=== PATIENT | male | born 1985 | race Caucasian/White ===

== ENCOUNTER 2023-12-12 23:08 | Emergency (ER) | payer BC, SELFPAY ==
[2023-12-12 23:15] VITALS: BP 173/98
[2023-12-13 00:25] VITALS: BP 133/90
[2023-12-13 00:35] LABS: % Basophils 0.3 % (0-2); % Eosinophils 0.1 % (0-6); % Immature Granulocytes 0.8 % (0-0.5); % Lymphocytes 6.2 % (20.5-51.1); % Monocytes 9.1 % (1.7-9.3); % Neutrophils 83.5 % (42.2-75.2); Absolute Immature Granulocytes 0.1 10^3/uL (0-0.05); Absolute Lymphocytes 0.6 10^3/uL (1.2-3.4); Absolute Monocytes 0.8 10^3/uL (0.1-0.6); Absolute Neutrophils 7.5 10^3/uL (1.4-6.5); Hematocrit 37.5 % (39.0-52.0); Hemoglobin 13.3 g/dL (13.0-18.0); Mean Corp Hgb Conc. 35.5 g/dL (33.0-37.0); Mean Corpuscular Volume 90.4 fL (80.0-94.0); Mean Platelet Volume 10.5 fL (7.4-10.4); Nucleated Red Blood Cells % 0 % (-); Platelet Count 221 10^3/uL (130-400); Red Blood Cell Count 4.15 10^6/uL (4.70-6.10); Red Cell Dist. Width 11.9 % (11.5-14.5)
[2023-12-13 00:48] LABS: Lactic Acid 0.8 mmol/L (0.7-2.0)
[2023-12-13 00:56] LABS: ALT (SGPT) 18 U/L (0-50); AST (SGOT) 24 U/L (17-59); Alkaline Phosphatase 78 U/L (38-126); Blood Urea Nitrogen 13 mg/dl (9-20); Calcium 9.1 mg/dl (8.4-10.2); Carbon Dioxide 23 mmol/L (22-30); Chloride 104 mmol/L (98-107); Glucose 105 mg/dl (70-99); Sodium 137 mmol/L (135-145); Total Bilirubin 0.6 mg/dl (0.2-1.3); Total Protein 6.6 g/dl (6.3-8.2); eGFR > 60.00
--- NOTE | 2023-12-13 01:47 | ED.GENMED ---
History of Present Illness
<JOB Mathews - Last Filed: 12/13/23 06:00>
General
Chief Complaint: Fever
Source: patient
Exam Limitations: none
Time Seen by Provider: 12/13/23 01:44
Nursing documentation reviewed up to this point in time: agreed with
History of Present Illness
History of Present Illness:
37 year old male presents for evaluation of fever. Pt reports that he awoke in the store [place] on 12/11 with fever and chills, tmax 104F per pt. Pt endorses associated cough since 12/09, with elwhy-nu-mmlpae sputum production reported. Pt also
endorses 3 bouts of watery diarrhea over the last 24 hours. Of note, pt notes that he was started on Augmentin 2 days ago by his PCP for suspected bacterial sinusitis. He denies blood in his stool, N/V, anorexia, recent travel, and sick contacts. Pt
took Tylenol approximately 3 hours ago, most recent temperature 99.9F. Pt has received this year's influenza vaccination, as well as last year's COVID-19 vaccination.
Past History
<JOB Mathews - Last Filed: 12/13/23 06:00>
Past History
ED Past Medical History: Hypothyroidism
ED Past Surgical History: None
Social History
Tobacco: Vaping
Alcohol: Occasional
Drug: None
Personal:
Living: with family
Employment: Employed
Family History
Family History: Negative Early CAD
Review of Systems
<JOB Mathews - Last Filed: 12/13/23 06:00>
Review of Systems
Allergies reviewed?: Yes
Constitutional: Reports fever and chills
EENT: Reports no symptoms
Respiratory: Reports cough
Cardiac: Reports no symptoms
ABD/GI: Reports diarrhea
: Reports no symptoms
Musculoskeletal: Reports no symptoms
Skin: Reports no symptoms
Neurological: Reports no symptoms
Endocrine: Reports no symptoms
Hematologic/Lymphatic: Reports no symptoms
Psychiatric: Reports no symptoms
Phy Exam
<JOB Mathews - Last Filed: 12/13/23 06:00>
General Physical Exam
General Presentation: well appearing
General age: appears stated age
General Skin: warm
General Habitus: normal
General Mental: alert
General Hydration: appears well hydrated
Cardiovascular Exam
Cardiovascular Exam: regular rate/rhythm and no edema
Course
<JOB Mathews - Last Filed: 12/13/23 06:00>
Orders/Labs/Results
Orders:
Orders
12/13/23 00:15
CR Chest - 2 Views Urgent
Comment:
Reason For Exam: suspected infection
12/13/23 00:18
Acetaminophen [Tylenol] 1,000 mg PO NOW STA
12/13/23 00:25
Complete Blood Count/With Diff Urgent
Comprehensive Metabolic Panel Urgent
Lactic Acid Q4H
Comment: ON ICE, CANCEL 2ND ORDER IF FIRST LACTIC ACID LEVEL <2
Blood Culture Q30M
KAITLYNN Source: Blood/Venous
Specimen Description:
Comment: FROM 2 SEPARATE SITES
12/13/23 00:45
Blood Culture Q30M
KAITLYNN Source: Blood/Venous
Specimen Description:
Comment: FROM 2 SEPARATE SITES
12/13/23 03:15
COVID-19 Antigen Urgent
Source: Nasal Swab
12/13/23 04:06
Ibuprofen [Motrin] 800 mg .ROUTE .STK-MED ONE
12/13/23 04:11
Ibuprofen [Motrin] 800 mg PO NOW STA
12/13/23 04:35
Influenza A+B Rapid Molecular Urgent
KAITLYNN Source: Nasal Swab
Specimen Description:
Date Specimen was Collected: 12/13/23
Time Specimen was Collected: 03:58
Rapid Strep Group A Urgent
KAITLYNN Source: Throat/Pharynx
Specimen Description:
Date Specimen was Collected: 12/13/23
Time Specimen was Collected: 03:58
Abnormal Lab Results
12/13/23
00:25
RBC 4.15 L 10^6/uL
(4.70-6.10)
Hct 37.5 L %
(39.0-52.0)
MCH 32.0 H pg
(27.0-31.0)
MPV 10.5 H fL
(7.4-10.4)
Abs Immat Gran (auto) 0.1 H 10^3/uL
(0-0.05)
Absolute Neuts (auto) 7.5 H 10^3/uL
(1.4-6.5)
Absolute Lymphs (auto) 0.6 L 10^3/uL
(1.2-3.4)
Absolute Monos (auto) 0.8 H 10^3/uL
(0.1-0.6)
Immature Gran % 0.8 H %
(0-0.5)
Neutrophils % 83.5 H %
(42.2-75.2)
Lymphocytes % 6.2 L %
(20.5-51.1)
Glucose 105 H mg/dl
(70-99)
12/13/23 00:25
12/13/23 00:25
Vital Signs
Initial and Last Documented VS:
Initial Vital Signs
Temp Pulse Resp BP Pulse Ox
103.2 F H 112 18 173/98 96
12/12/23 23:15 12/12/23 23:15 12/12/23 23:15 12/12/23 23:15 12/12/23 23:15
Last Documented Vital Signs
Temp Pulse Resp BP Pulse Ox
102.9 F H 91 16 133/90 97
12/13/23 04:08 12/13/23 03:16 12/13/23 03:16 12/13/23 00:25 12/13/23 03:16
<Samuel Santos, DO - Last Filed: 12/13/23 05:56>
Orders/Labs/Results
Orders:
Orders
12/13/23 00:15
CR Chest - 2 Views Urgent
Comment:
Reason For Exam: suspected infection
12/13/23 00:18
Acetaminophen [Tylenol] 1,000 mg PO NOW STA
12/13/23 00:25
Complete Blood Count/With Diff Urgent
Comprehensive Metabolic Panel Urgent
Lactic Acid Q4H
Comment: ON ICE, CANCEL 2ND ORDER IF FIRST LACTIC ACID LEVEL <2
Blood Culture Q30M
KAITLYNN Source: Blood/Venous
Specimen Description:
Comment: FROM 2 SEPARATE SITES
12/13/23 00:45
Blood Culture Q30M
KAITLYNN Source: Blood/Venous
Specimen Description:
Comment: FROM 2 SEPARATE SITES
12/13/23 03:15
COVID-19 Antigen Urgent
Source: Nasal Swab
12/13/23 04:06
Ibuprofen [Motrin] 800 mg .ROUTE .STK-MED ONE
12/13/23 04:11
Ibuprofen [Motrin] 800 mg PO NOW STA
12/13/23 04:35
Influenza A+B Rapid Molecular Urgent
KAITLYNN Source: Nasal Swab
Specimen Description:
Date Specimen was Collected: 12/13/23
Time Specimen was Collected: 03:58
Rapid Strep Group A Urgent
KAITLYNN Source: Throat/Pharynx
Specimen Description:
Date Specimen was Collected: 12/13/23
Time Specimen was Collected: 03:58
Abnormal Lab Results
12/13/23
00:25
RBC 4.15 L 10^6/uL
(4.70-6.10)
Hct 37.5 L %
(39.0-52.0)
MCH 32.0 H pg
(27.0-31.0)
MPV 10.5 H fL
(7.4-10.4)
Abs Immat Gran (auto) 0.1 H 10^3/uL
(0-0.05)
Absolute Neuts (auto) 7.5 H 10^3/uL
(1.4-6.5)
Absolute Lymphs (auto) 0.6 L 10^3/uL
(1.2-3.4)
Absolute Monos (auto) 0.8 H 10^3/uL
(0.1-0.6)
Immature Gran % 0.8 H %
(0-0.5)
Neutrophils % 83.5 H %
(42.2-75.2)
Lymphocytes % 6.2 L %
(20.5-51.1)
Glucose 105 H mg/dl
(70-99)
12/13/23 00:25
12/13/23 00:25
Vital Signs
Initial and Last Documented VS:
Initial Vital Signs
Temp Pulse Resp BP Pulse Ox
103.2 F H 112 18 173/98 96
12/12/23 23:15 12/12/23 23:15 12/12/23 23:15 12/12/23 23:15 12/12/23 23:15
Last Documented Vital Signs
Temp Pulse Resp BP Pulse Ox
102.9 F H 91 16 133/90 97
12/13/23 04:08 12/13/23 03:16 12/13/23 03:16 12/13/23 00:25 12/13/23 03:16
<JOB Mathews - Last Filed: 12/13/23 06:00>
MDM/Problems Addressed
Differential Diagnosis Includes:
PNA, unspecified gastritis, COVID-19
MDM/Problems Addressed:
COVID-19 Antigen Nasal swab
CR Chest
Pt given Acetaminophen [Tylenol] 1,000 mg PO
Complete Blood Count/With Diff
Comprehensive Metabolic Panel
Lactic Acid
Blood Culture Q30M
<JOB Mathews - Last Filed: 12/13/23 06:00>
*Critical Care Note
Total Time (30-74mins, 75-104mins- exclusive of procedures): Not Applicable
<Samuel Santos DO - Last Filed: 12/13/23 05:56>
Update Note
Update Note:
[place] 37-year-old male presents with fever. Patient has been taking Tylenol and Motrin. He has been taking Augmentin as prescribed by his primary care provider. He typically gets 1 sinus infection per year and after seeing his primary care
provider provider on Saturday, it was prescribed prophylactically for him. Patient does report several episodes of nonbloody diarrhea. Patient says that the fever woke him up.
ED Attending Note
<JOB Mathews - Last Filed: 12/13/23 06:00>
-
Portions of this chart may have been created with voice recognition software.� Occasional wrong word or��sound alike� substitutions may have occurred due to the inherent limitations of voice recognition software.
<Samuel Santos DO - Last Filed: 12/13/23 05:56>
ED Attending Note
Patient seen and examined by attending physician: Yes
I performed the substantive portion of visit, reviewed & personally made and approve the management plan that is documented in note by myself or OREN.: Yes
ED Attending Note:
Pleasant 37-year-old male presents with fever. He states he awakened yesterday with fever and chills. Patient states that his Tmax was 104. Has been seen by his primary care provider 2 days ago and started on Augmentin for chronic sinusitis.
Denies any other symptoms or issues. Patient is concerned because she is due to go to a vacation on Saturday and wanted to come in to get checked out. Patient was seen in conjunction with the [employer] student. I have reviewed and agree with the history
and treatment plan presented. On my independent physical exam, patient is awake, alert, and oriented x3 lungs clear bilaterally without wheezes rales or rhonchi. Abdomen is soft nontender nondistended no hepatosplenomegaly.
Chest x-ray is normal. Flu and COVID are negative. Strep is negative.. This is likely viral syndrome. Plan: To discharge home. Discussed return to ER instructions with patient. He verbalized good understanding and will be discharged in
improved condition.
Discharge Plan
Departure
Patient Disposition: Home (Routine Discharge)
Date of Disposition: 12/13/23
Time of Disposition: 05:53
Patient with high blood pressure during this ER visit?: Yes
Condition: Good
Discharge Problem:
Viral syndrome
Instructions: Viral Syndrome (DC), BLOOD PRESSURE
Referrals:
Samuel Santos DO [Emergency Provider] -
Parul Santiago PA-C [Family Provider] -
Stand Alone Forms: Return to Work
Activity Restrictions/Additional Instructions:
It was a pleasure meeting you and taking part in your care. We hope for your continued healing and wellness.
Please read discharge instructions in their entirety. However, they are for general education and may not describe your exact diagnosis at discharge. Information on your ER visit and medical conditions were discussed with you along with appropriate
follow up information...
If indicated, please take your medications as instructed and indicated on discharge paperwork.
Please schedule a follow up appointment as directed. Call to schedule an appointment
Please return to the emergency department with ANY change in, persisting, or worsening of symptoms. If any of your symptoms do not improve, or persist, or become more severe within 6-12 hours, please return to the emergency department for further
care.
Please return to the emergency department if you develop a headache, neck pain/stiffness, fever greater than 100.4F, chest pain, shortness of breath, persistent nausea, vomiting, slurred speech, difficulty walking, numbness/tingling, weakness, signs
of infection or any other symptoms that are worrisome to you.
If you have any questions or concerns please do not hesitate to call the Hospital at or E-mail me directly at [email or web address]
Interventions
Interventions:
*Risk Screen - Suicide Last Done: 12/13/23 01:19
*General Assessment Last Done: 12/13/23 01:19
*Neglect/Abuse Screening Last Done: 12/13/23 01:19
ED- Fall Risk Assessment Last Done: 12/13/23 01:19
*ED COVID-19 Vaccine History Last Done: 12/13/23 01:19
ED- Neurological Assessment Last Done: 12/13/23 01:19
ED-Skin Assessment Last Done: 12/13/23 01:19
Discharge Date and Time
Print Language: ITALIAN
[2023-12-13 03:41] LABS: COVID-19 Antigen Negative (Negative)
[2023-12-13] MEDS: MOTRIN 800 MG PO (04:11)
[2023-12-13 06:05] VITALS: BP 126/84
== END 2023-12-13 06:11 | disposition home or self-care (01) ==
LOC: EMR 23:08
PROVIDERS: Emergency Medicine; EMERGENCY PHYSICIAN Student in an Organized Health Care Education/Training Program; FAMILY PHYSICIAN Physician Assistant Medical
DX: B34.9 Viral infection, unspecified (principal); E03.9 Hypothyroidism, unspecified; F17.290 Nicotine dependence, other tobacco product, uncomplicated; Z11.52 Encounter for screening for COVID-19; Z79.2 Long term (current) use of antibiotics
CPT/HCPCS: 99283; 71046; 80053; 83605; 85025; 87040; 87070; 87502; 87811; 87880

== ENCOUNTER 2023-12-14 08:57 | Emergency (ER) | payer BC, SELFPAY ==
[2023-12-14 08:58] VITALS: BMI 29.0
[2023-12-14 09:00] VITALS: BP 124/88
[2023-12-14] MEDS: NSS 1000 IV (09:48)
[2023-12-14] MEDS: ZOFRAN 4 MG IV (09:48)
[2023-12-14] MEDS: PROTONIX IV 80 MG IV (09:49)
[2023-12-14 09:58] LABS: % Basophils 0.2 % (0-2); % Eosinophils 0.1 % (0-6); % Immature Granulocytes 0.6 % (0-0.5); % Lymphocytes 6.9 % (20.5-51.1); % Monocytes 13.2 % (1.7-9.3); Absolute Immature Granulocytes 0.1 10^3/uL (0-0.05); Absolute Lymphocytes 0.6 10^3/uL (1.2-3.4); Absolute Monocytes 1.1 10^3/uL (0.1-0.6); Absolute Neutrophils 6.3 10^3/uL (1.4-6.5); Hematocrit 34.7 % (39.0-52.0); Hemoglobin 12.2 g/dL (13.0-18.0); Mean Corp Hgb Conc. 35.2 g/dL (33.0-37.0); Mean Corpuscular Hgb 31.9 pg (27.0-31.0); Mean Corpuscular Volume 90.6 fL (80.0-94.0); Mean Platelet Volume 10.2 fL (7.4-10.4); Nucleated Red Blood Cells % 0 % (-); Platelet Count 180 10^3/uL (130-400); Red Blood Cell Count 3.83 10^6/uL (4.70-6.10); Red Cell Dist. Width 12.1 % (11.5-14.5)
[2023-12-14 10:11] LABS: ALT (SGPT) 32 U/L (0-50); AST (SGOT) 40 U/L (17-59); Albumin 3.5 g/dl (3.5-5.0); Alkaline Phosphatase 89 U/L (38-126); Blood Urea Nitrogen 12 mg/dl (9-20); Calcium 8.2 mg/dl (8.4-10.2); Carbon Dioxide 28 mmol/L (22-30); Chloride 103 mmol/L (98-107); Estimated Creatinine Clearance 112 ml/min; Glucose 108 mg/dl (70-99); Lipase 31 U/L (23-300); Sodium 137 mmol/L (135-145); Total Bilirubin 0.8 mg/dl (0.2-1.3); eGFR > 60.00
--- NOTE | 2023-12-14 11:09 | ED.GENMED ---
History of Present Illness
General
Chief Complaint: Abdominal Pain
Source: patient, records and spouse
Exam Limitations: none
Time Seen by Provider: 12/14/23 09:13
Nursing documentation reviewed up to this point in time: agreed with
History of Present Illness
History of Present Illness:
Patient is a 37-year-old male who returns to the emergency department with continued fever and now is developed a dull pain in the mid abdomen. During the night he felt diaphoretic and bloated. Patient belched and felt somewhat better. Patient
feels nauseous since yesterday. Patient has not vomited. Patient has a history of appendectomy and repair of inguinal hernia. Patient noticed his urine was dark. Patient's developed explosive diarrhea with since starting Augmentin for the fever
earlier in the week. Patient was seen here 1 day ago and had workup. Patient continues to have a cough that is nonproductive. Patient denies feeling nasal congestion facial pain. Patient did use his 's inhaler because of feeling congested.
Patient denies any symptoms except that his urine is dark. Patient denies any hematochezia, melena or mucus in the stools. The diarrhea started about the time that he started the Augmentin. Patient still feels bloated
Past History
Past History
ED Past Medical History: Hypothyroidism
ED Past Surgical History: Appendectomy and Other (Inguinal hernia repair)
Social History
Tobacco: Vaping
Alcohol: Occasional
Drug: None
Personal:
Living: with family
Employment: Employed
Family History
Family History: Negative Early CAD
Review of Systems
Review of Systems
All Other Systems: ROS reviewed and negative except as documented in HPI and ROS
Constitutional: Reports fever, fatigue and chills
EENT: Reports no symptoms
Respiratory: Reports cough; Denies trouble breathing
Cardiac: Reports no symptoms
ABD/GI: Reports abdominal pain, nausea, diarrhea and anorexia; Denies vomiting, bloody stools or black stools
: Reports dark urine; Denies dysuria, frequency, flank pain, urgency or bleeding
Musculoskeletal: Reports no symptoms
Skin: Reports no symptoms
Neurological: Reports no symptoms
Hematologic/Lymphatic: Reports no symptoms
Phy Exam
Physical Exam
Physical Exam:
Physical Exam
General: mild to moderate distress, alert and appropriate, well nourished, dry mucous membranes
HENT: Normocephalic, supple with no lymphadenopathy, no thyromegaly
Eyes: Clear sclera, conjuctiva without injection
Heart: Regular rhythm and rate. No S3, S4. No murmur. No NVD
Lungs: No respiratory distress, no stridor, lung sounds with minimal scattered rales in the bases but otherwise clear and equal bilaterally, chest wall symmetrical and nontender
Abdomen: Soft, mild midepigastric tenderness without guarding or rebound, no organomegaly, no CVA tenderness, BS diminished
Neuro: Alert and oriented x 3, CN II - XII intact, no motor focality, no cerebellar dysfunction
Skin: no rash
Psychiatric: well kept. interactive and cooperative
Extremities: No edema, cyanosis, tenderness, Good and equal peripheral pulses.
Scores
Heart Failure Risk
Heart Failure Risk Score: Not Applicable
Heart Score for Chest Pain Patients
STEMI patient?: Not applicable
Withdrawal Assessment of Alcohol
Withdrawal Assessment Completed?: Not applicable
Course
Orders/Labs/Results
Orders:
Orders
12/14/23 09:37
0.9% Sodium Chloride 1000 ml [Nss] 1,000 ml IV BOLUS
Acetaminophen [Tylenol] 1,000 mg PO NOW STA
Ondansetron Injectable [Zofran] 4 mg IV NOW STA
12/14/23 09:38
CT Abd/Pel (IV only)-DH only Urgent
Comment:
Reason For Exam: diffuse upper abd pain
Pantoprazole [Protonix IV] 80 mg IV NOW STA
12/14/23 09:43
Complete Blood Count/With Diff Urgent
Comprehensive Metabolic Panel Urgent
Lipase Urgent
12/14/23 11:27
Ibuprofen [Motrin] 600 mg .ROUTE .STK-MED ONE
Ibuprofen [Motrin] 600 mg PO NOW STA
12/14/23 12:31
Urinalysis Reflex To Culture Urgent
Date Specimen was Collected: 12/14/23
Time Specimen was Collected: 12:27
Abnormal Lab Results
12/14/23
09:43
RBC 3.83 L 10^6/uL
(4.70-6.10)
Hgb 12.2 L g/dL
(13.0-18.0)
Hct 34.7 L %
(39.0-52.0)
MCH 31.9 H pg
(27.0-31.0)
Abs Immat Gran (auto) 0.1 H 10^3/uL
(0-0.05)
Absolute Lymphs (auto) 0.6 L 10^3/uL
(1.2-3.4)
Absolute Monos (auto) 1.1 H 10^3/uL
(0.1-0.6)
Immature Gran % 0.6 H %
(0-0.5)
Neutrophils % 79.0 H %
(42.2-75.2)
Lymphocytes % 6.9 L %
(20.5-51.1)
Monocytes % 13.2 H %
(1.7-9.3)
Glucose 108 H mg/dl
(70-99)
Calcium 8.2 L mg/dl
(8.4-10.2)
Total Protein 6.0 L g/dl
(6.3-8.2)
12/14/23 09:43
12/14/23 09:43
Vital Signs
Initial and Last Documented VS:
Initial Vital Signs
Temp Pulse Resp BP Pulse Ox
100.4 F H 102 16 124/88 95
12/14/23 09:00 12/14/23 09:00 12/14/23 09:00 12/14/23 09:00 12/14/23 09:00
Last Documented Vital Signs
Temp Pulse Resp BP Pulse Ox
102.5 F H 78 16 126/73 97
12/14/23 11:22 12/14/23 11:21 12/14/23 11:21 12/14/23 11:21 12/14/23 11:21
*Radiology
Radiology exam reviewed: radiology read reviewed
*Pulse Oximetry
Patient hypoxic: no
*EKG
Interpreted by ED Provider?: NA
*Janitor Cleaner Interpretation
Rate: Janitor Cleaner- N/A
*Critical Care Note
Total Time (30-74mins, 75-104mins- exclusive of procedures): Not Applicable
Update Note
Update Note:
It appears that the patient has pneumonia. This would correspond with physical exam. In addition patient may have developed a mild ileus secondary to that. Patient is already on Augmentin. However because of the lack of coverage of atypicals
patient was placed on azithromycin and prednisone as well as an inhaler. Patient will need fluids and fever management.
ED Attending Note
-
Portions of this chart may have been created with voice recognition software.� Occasional wrong word or��sound alike� substitutions may have occurred due to the inherent limitations of voice recognition software.
Discharge Plan
Departure
Patient Disposition: Home (Routine Discharge)
Date of Disposition: 12/14/23
Time of Disposition: 12:46
Patient with high blood pressure during this ER visit?: No
Condition: Fair
Covid-19: Not Applicable
Discharge Problem:
Pneumonia, Fever
Instructions: Fever, Adult (DC), Pneumonia
Prescriptions:
New
azithromycin [Zithromax] 250 mg Tablet
250 mg PO DAILY Qty: 6 0RF
prednisone 20 mg tablet
20 mg PO BID Qty: 10 0RF
albuterol sulfate 90 mcg/actuation HFA aerosol inhaler
2 puff inhalation Q6H PRN (Reason: shortness of breath or wheezing) Qty: 8.5 0RF
Referrals:
Parul Santiago PA-C [Family Provider] - Follow up in 2-3 days
Activity Restrictions/Additional Instructions:
Acetaminophen 1000 mg or ibuprofen 600 mg every 6 hours for fever. As much fluids as you can manage.
Interventions
Interventions:
*Risk Screen - Suicide Last Done: 12/14/23 09:00
*General Assessment Last Done: 12/14/23 09:00
*Neglect/Abuse Screening Last Done: 12/14/23 09:00
ED- Fall Risk Assessment Last Done: 12/14/23 09:23
*ED COVID-19 Vaccine History Last Done: 12/14/23 09:17
PG-Ywipud-Wzcsxfozdl Assessment Last Done: 12/14/23 09:17
Discharge Date and Time
Print Language: ICELANDIC
[2023-12-14 11:21] VITALS: BP 126/73
[2023-12-14] MEDS: MOTRIN 600 MG PO (11:28)
[2023-12-14 12:52] VITALS: BP 115/70
[2023-12-14 12:52] LABS: Urine Albumin Trace (Neg - Trace); Urine Bilirubin Negative (Negative); Urine Character Clear (Clear); Urine Color Yellow; Urine Glucose Negative (Negative); Urine Ketone 1+ (Negative); Urine Leukocyte Negative (Negative); Urine Nitrite Negative (Negative); Urine Occult Blood Negative (Negative); Urine Specific Gravity 1.005 (<1.030); Urine Urobilinogen 2+ (Neg - 1+)
== END 2023-12-14 12:59 | disposition home or self-care (01) ==
LOC: EMR 08:57
PROVIDERS: EMERGENCY PHYSICIAN Emergency Medicine; FAMILY PHYSICIAN Physician Assistant Medical
DX: J18.9 Pneumonia, unspecified organism (principal); R50.9 Fever, unspecified; E03.9 Hypothyroidism, unspecified; F17.290 Nicotine dependence, other tobacco product, uncomplicated
CPT/HCPCS: 99284; 96374; 96375; 96361; 74177; 80053; 81003; 83690; 85025; Q9967

== ENCOUNTER → 2024-06-29 11:59 | Outpatient (REF) | payer BC, SELFPAY | LOC: DHSLP 11:59 | PROVIDERS: ATTENDING PHYSICIAN Internal Medicine; FAMILY PHYSICIAN Physician Assistant Medical | DX: G47.33 Obstructive sleep apnea (adult) (pediatric) (principal) | CPT/HCPCS: 95800 ==

== ENCOUNTER → 2024-08-25 12:43 | Outpatient (REF) | payer BC, SELFPAY | LOC: HWRAD 12:43 | PROVIDERS: ATTENDING PHYSICIAN Physician Assistant Medical; FAMILY PHYSICIAN Physician Assistant Medical | DX: R10.11 Right upper quadrant pain (principal) | CPT/HCPCS: 76700 ==

== ENCOUNTER → 2024-12-09 16:38 | Outpatient (REF) | payer BC, SELFPAY | LOC: HWRAD 16:38 | PROVIDERS: ATTENDING PHYSICIAN Physician Assistant Medical | DX: R10.9 Unspecified abdominal pain (principal) | CPT/HCPCS: 71111 ==